=== PATIENT | male | born 1955 ===

== ENCOUNTER 2018-05-01 12:22 | Emergency (ER) | payer BC, MEDICAID ==
[2018-05-01 12:50] VITALS: BP 117/66; PULSE 71; RESP 20; TEMP 97.7; O2SAT 95
--- NOTE | 2018-05-01 14:31 | C.PDOC ---
History Of Present Illness 62 y/o male, otherwise well, presents to the ED complaining of left wrist pain developing over the past few days. Patient states he fell 3-4 days ago while at home, slipped backward, catching himself on his left hand. Denies any head trauma or LOC. Patient otherwise denies any neck pain, barrera pain, changes in sensation, focal weakness, or other injuries. Time Seen by Provider: 05/01/18 13:01 Chief Complaint (Nursing): Upper Extremity Problem/Injury History Per: Patient History/Exam Limitations: no limitations Onset/Duration Of Symptoms: Days Current Symptoms Are (Timing): Still Present Past Medical History Reviewed: Historical Data, Nursing Documentation, Vital Signs Vital Signs: Last Vital Signs Temp 97.7 F 05/01/18 12:49 Pulse 71 05/01/18 12:49 Resp 20 05/01/18 12:49 BP 117/66 05/01/18 12:49 Pulse Ox 95 05/01/18 12:49 - Medical History PMH: Denies: Chronic Kidney Disease Family History: States: Unknown Family Hx - Social History Hx Alcohol Use: No Hx Substance Use: No - Immunization History Hx Tetanus Toxoid Vaccination: No Hx Influenza Vaccination: No Hx Pneumococcal Vaccination: No Review Of Systems Musculoskeletal: Positive for: Hand Pain Skin: Negative for: Lesions, Bruising Neurological: Negative for: Weakness, Numbness, Incoordination Physical Exam - Physical Exam Appears: Non-toxic, No Acute Distress Skin: Warm, Dry Eye(s): bilateral: Normal Inspection Chest: Symmetrical Extremity: Normal ROM (of all digits), Tenderness (mild tenderness to radial aspect of left wrist), Capillary Refill (< 2 sec), Swelling (over the radial aspect of left wrist) Pulses: Left Radial: Normal, Right Radial: Normal Neurological/Psych: Oriented x3, Normal Speech, Normal Motor, Normal Sensation ED Course And Treatment O2 Sat by Pulse Oximetry: 95 (RA) Pulse Ox Interpretation: Normal - Other Rad XR L wrist X-Ray: Read By Radiologist Interpretation: FINDINGS: BONES: No acute fracture at the wrist level noted. On the lateral view of the more proximal forearm there is ossification volar to hardware-chronicity is favored here. Correlate clinically. Better yet comparison with earlier left forearm studies to ensure stability of this appearance. 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 SOFT TISSUES: Normal. OTHER FINDINGS: None. 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 Clinically-better yet comparison with earlier outside x-rays to ensure this is recommended. No acute fracture suspect. Arthrosis as above. No gross hardware failure appreciated per portions visualized. Medical Decision Making Medical Decision Making: Plan: * x-ray left wrist Disposition Counseled Patient/Family Regarding: Studies Performed, Need For Followup, Rx Given - Disposition Referrals: Dirk Meier MD [Staff Provider] - Disposition: HOME/ ROUTINE Disposition Time: 14:34 Condition: STABLE Instructions: Wrist Sprain (DC) Forms: [facility] (Polish), General Discharge Instructions - POA Present On Arrival: None - Clinical Impression Clinical Impression: Sprain of wrist, left - Scribe Statement The provider has reviewed the documentation as recorded by the Scribe (Ana Rosa Pizarro) Provider Attestation: All medical record entries made by the Scribe were at my direction and personally dictated by me. I have reviewed the chart and agree that the record accurately reflects my personal performance of the history, physical exam, medical decision making, and the department course for this patient. I have also personally directed, reviewed, and agree with the discharge instructions and disposition.
== END 2018-05-01 14:44 | disposition home or self-care (01) ==
LOC: C.ER 12:22
DX: S63.502A Unspecified sprain of left wrist, initial encounter (principal); W01.0XXA Fall on same level from slipping, tripping and stumbling without subsequent striking against object, initial encounter; Y92.009 Unspecified place in unspecified non-institutional (private) residence as the place of occurrence of the external cause